=== PATIENT | male | born 1955 | race Two or more races ===

== ENCOUNTER 2024-11-06 10:40 | Emergency (ER) | payer OTHER ==
[~2024-11-06] VITALS: Ht 177.8 cm; Wt 114.3 kg
--- NOTE | 2024-11-06 11:09 | ED.PDOC ---
SOB-HPI HPI Comments This is a 68 year old male presenting to the ED with chief complaint of SOB. Patient reports that he has been experiencing SOB with associated cough and lower chest pain after coughing for the past week, however, his cough has been lingering for about a year now. Patient relays that he initially visited an ENT specialist who performed a sinus procedure about 4-5 months ago, but had no improvement in his cough. Patient states he was on a recent cruise to [place]. Patient was noted to be at 87% on RA in triage, being placed on 4L of O2 and going up to 92%. Patient denies any fever, chills, left sided chest pain, headache, hemoptysis, or N/V. Chief Complaint: Shortness of Breath Time Seen by MD: 11:06 Reviewed notes: Nurses Notes, Medications, Allergies Information Source: Patient Mode of Arrival: Ambulatory Severity: Moderate Timing: Weeks Duration: Since onset Context: At Rest PE Risk Factors: None History of: None Prehospital treatment: None Modifying Factors: Nothing Associated Signs and Symptoms: Cough, Chest Pain Quality: Tightness Radiation: No Radiation Location: Substernal If cough with SOB: Non-Productive Past Medical History PAST MEDICAL HISTORY: DM, High Lipids, HTN Past Medical History (Other): PVCs Surgical History (Other): Sinus surgery, Hemorrhoid surgery Family History Family History: Reviewed,noncontributory to illness, Family hx of heart tray Social History Smoker: Non-Smoker, Quit Greater Than 1 Year Alcohol: Denies ETOH Use Drugs: Denies Drug Use Lives In: Home Constitutional: denies: chills, diaphoresis, fatigue, fever, malaise, sweats, weakness, others EENTM: denies: blurred vision, double vision, ear bleeding, ear discharge, ear drainage, ear pain, ear ringing, eye pain, eye redness, hearing loss, mouth pain, mouth swelling, nasal discharge, nose bleeding, nose congestion, nose pain, photophobia, tearing, throat pain, throat swelling, voice changes, others Respiratory: reports: cough, shortness of breath; denies: hemoptysis, orthopnea, SOB at rest, SOB with excertion, stridor, wheezing, others Cardiovascular: reports: chest pain; denies: dizzy spells, diaphoresis, Dyspnea on exertion, edema, irregular heart beat, left arm pain, lightheadedness, palpitations, PND, syncope, others Gastrointestinal: denies: abdomen distended, abdominal pain, blood streaked bowels, constipated, diarrhea, dysphagia, difficulty swallowing, hematemesis, melena, nausea, poor appetite, poor fluid intake, rectal bleeding, rectal pain, vomiting, others Genitourinary: denies: burning, dysuria, flank pain, frequency, hematuria, incontinence, penile discharge, penile sore, pain, testicle pain, testicle swelling, urgency, others Neurological: denies: dizziness, fainting, headache, left sided numbness, left sided weakness, numbness, paresthesia, pre-existing deficit, right sided numbness, right sided weakness, seizure, speech problems, tingling, tremors, weakness, others Musculoskeletal: denies: back pain, gout, joint pain, joint swelling, muscle pain, muscle stiffness, neck pain, others Integumetry: denies: bruises, change in color, change in hair/nails, dryness, laceration, lesions, lumps, rash, wounds, others Allergic/Immunocompromised: denies: Difficulty Healing, Frequent Infections, Hives, Itching, others Hematologic/Lymphatic: denies: anemia, blood clots, easy bleeding, easy bruising, swollen glands, others Endocrine: denies: excessive hunger, excessive sweating, excessive thirst, excessive urination, flushing, intolerance to cold, intolerance to heat, unexplained weight gain, unexplained weight loss, others Psychiatric: denies: anxiety, bipolar disorder, depression, hopeless, panic disorder, schizophrenia, sleepless, suicidal, others All Other Systems: Reviewed and Negative Physical Exam General Appearance: Moderate Distress HEENT: Normal ENT Inspection, Pharynx Normal, TMs Normal Neck: Full Range of Motion, Non-Tender, Normal, Normal Inspection Respiratory: Chest Non-Tender, Lungs Clear, No Accessory Muscle Use, No Respiratory Distress, Normal Breath Sounds Cardiovascular: No Edema, No JVD, No Murmur, No Gallop, Normal Peripheral Pulses, Regular Rate/Rhythm Breast Exam: Deferred Gastrointestinal: No Organomegaly, Non Tender, No Pulsatile Mass, Normal Bowel Sounds, Soft Genitalia: Deferred Pelvic: Deferred Rectal: Deferred Extremities: No calf tenderness, Normal capillary refill, Normal inspection, Normal range of motion, Non-tender, No pedal edema Musculoskeletal : Apperance: Normal Neurologic: Alert, sample sewer II-XII nml as Tested, Motor Weakness, Normal Affect, Normal Mood, No Sensory Deficits Cerebellar Function: Normal Reflexes: Normal Skin: Dry, Normal Color, Warm Lymphatic: No Adenopathy EKG EKG : Pulse Rate (adult): 86 [place]: Normal Cardiac Rhythm: NSR Block: RBBB Hypertrophy: None ST: Normal Was a procedure done? Was a procedure done?: No Differential Dx Differential Diagnosis: Asthma, Bronchitis, CHF, COPD, Pneumonia X-Ray, Labs, Meds, VS Vital Signs Date Time Temp Pulse Resp B/P (MAP) Pulse Ox O2 Delivery O2 Flow Rate FiO2 11/06/24 16:43 98.7 70 18 139/80 (99) 97 98.7 11/06/24 14:24 97.8 72 16 137/77 (97) 96 97.8 11/06/24 12:17 84 17 95 Nasal Cannula 3.0 11/06/24 12:17 98.2 84 17 113/71 (85) 95 98.2 11/06/24 11:35 98.2 85 18 130/79 (96) 94 98.2 11/06/24 11:12 86 11/06/24 11:09 86 Lab Test 11/06/24 13:14 11/06/24 13:10 11/06/24 12:15 11/06/24 11:15 Range/Units Blood Gas Specimen Type Arterial Blood Gas Sample Site Left radial Blood Gas Patient Temperature 37.0 Arterial Blood Date Drawn [id number] Arterial Blood pH 7.431 7.350-7.450 Arterial Blood Partial Pressure CO2 34.4 L 35.0-48.0 mmHg Arterial Blood Partial Pressure O2 72.8 L 83.0-108.0 mmHg Arterial Blood HCO3 22.4 21.0-28.0 mmol/L Arterial Blood Oxygen Saturation 94.2 94.0-98.0 % Arterial Blood Base Excess -1.2 -2.0-3.0 mmol/L Arterial Blood Oxyhemoglobin 93.0 L 94.0-98.0 % Arterial Blood Carboxyhemoglobin 0.7 0.5-1.5 % Arterial Blood Methemoglobin 0.6 0.0-1.5 % [place] Test Yes Blood Gas Total Hemoglobin 14.90 13.5-17.5 g/dL Blood Gas Liter Flow 4.00 Blood Gas Modality Nasal cannula Blood Gas Spontaneous Rate 20 FiO2 % 36.0 Troponin I High Sensitivity 5 5 </=54 ng/L Urine Color Light-yellow Yellow Urine Clarity Clear Clear Urine pH 5.5 5.0-9.0 Urine Specific [place] 1.020 1.001-1.035 Urine Protein Negative Negative Urine Ketones Negative Negative Urine Blood Negative Negative /uL Urine Nitrite Negative Negative Urine Bilirubin Negative Negative Urine Urobilinogen Normal Negative mg/dL Urine Leukocyte Esterase 2+ Negative /uL Urine RBC 1 0 - 3 /hpf Urine Microscopic WBC 21 H 0-3 /HPF Urine Squamous Epithelial Cells None seen <5 /hpf Urine Bacteria None seen None Seen /hpf Urine Mucus Few None Seen Urine Glucose Normal Normal mg/dL White Blood Count 7.8 4.4-10.8 10^3/uL Red Blood Count 4.96 4.5-5.90 10^6/uL Hemoglobin 14.9 13.5-17.5 g/dL Hematocrit 44.0 41.0-53.0 % Mean Corpuscular Volume 88.8 80.0-100.0 fL Mean Corpuscular Hemoglobin 30.0 28.0-32.0 pg Mean Corpuscular Hemoglobin Concent 33.8 32.0-36.0 g/dL Red Cell Distribution Width 14.1 11.8-14.3 % Platelet Count 236 140-450 10^3/uL Mean Platelet Volume 8.1 6.9-10.8 fL Neutrophils (%) (Auto) 71.3 37.0-80.0 % Lymphocytes (%) (Auto) 16.3 10.0-50.0 % Monocytes (%) (Auto) 5.6 0.0-12.0 % Eosinophils (%) (Auto) 5.6 0.0-7.0 % Basophils (%) (Auto) 1.2 0.0-2.0 % Neutrophils # (Auto) 5.6 1.6-8.6 10 ^3/uL Lymphocytes # (Auto) 1.3 0.4-5.4 10 ^3/uL Monocytes # (Auto) 0.4 0-1.3 10 ^3/uL Eosinophils # (Auto) 0.4 0-0.8 10 ^3/uL Basophils # (Auto) 0.1 0-0.2 10 ^3/uL Nucleated Red Blood Cells 0.1 % D-Dimer, Quantitative 0.30 0.0-0.49 mg/L FEU Sodium Level 140 136-145 mmol/L Potassium Level 4.3 3.5-5.1 mmol/L Chloride Level 108 H 98-107 mmol/L Carbon Dioxide Level 27 20-31 mmol/L Anion Gap 5 5-15 Blood Urea Nitrogen 19 9-23 mg/dL Creatinine 1.30 0.700-1.30 mg/dL Glomerular Filtration Rate Calc 60 >90 mL/min BUN/Creatinine Ratio 14.6 10.0-20.0 Serum Glucose 115 H 74-106 mg/dL Calcium Level 10.7 H 8.7-10.4 mg/dL B-Type Natriuretic Peptide 24.21 0-100 pg/mL The patient's CBC is within normal limits The chemistry panel is within normal limits The glucose is elevated at 115 The BNP is within normal limits The urine test is positive for a UTI An ABG was done which shows NPO to of 72 The patient was evaluated by Dr. Merritt The patient is being discharged They are sending oxygen home with the patient Images Reviewed?: Images reviewed and evaluated by me Time of 1ST Reevaluation: 12:24 Reevaluation 1ST: Unchanged Patient Education/Counseling: Diagnosis, Treatment, Prognosis Family Education/Counseling: No Family Present Additional Information Reviewed patient's previous visit(s): None The following tests were ordered, and results were reviewed by me: Additional information was gathered from interviewing the following independent historian: NONE I reviewed and agreed with the following test results read by other provider: NONE I discussed treatments and results with medical personnel and: Patient Comprehensive systems review obtained and negative except for what is stated in the HPI. Departure 1 Departure Time of Disposition: 19:02 Impression: Primary Impression: Hypoxemia Additional Impression: Generalized weakness Disposition: 01 HOME / SELF CARE / HOMELESS Condition: Fair e-Prescriptions Methylprednisolone (Medrol Dosepak) 4 Mg Tamir 4 MG PO UD, #21 TAB UAD Prov: RUSTY MERRITT MD 11/06/24 Levofloxacin Hemihydrate (LEVAQUIN 500 MG) 500 Mg Tab 1 TAB PO DAILY, #10 TAB Prov: RUSTY MERRITT MD 11/06/24 Discharged With: Self Critical Care Note Critical Care Time?: Yes (45 min-critical care time only) Stability Stability form required: No Heart Score Heart Score: Heart Score Response (Comments) Value History Moderate Suspicious 1 EKG Normal 0 Age >65 2 Risk Factors >3 or Hx ASHD 2 Troponin Normal limit 0 Total 5 I personally scribed for ANJU PARK MD ([email or web address]) on 11/06/24 at 11:09. Electronically submitted by Colin Gaffney ([email or web address]). I personally scribed for ANJU PARK MD ([email or web address]) on 11/06/24 at 11:12. Electronically submitted by Colin Gaffney ([email or web address]). ANJU PARK MD Nov 06, 2024 11:09
[2024-11-06 11:27] LABS: Basophils # (auto) 0.1 10 ^3/uL (0-0.2); Basophils % (auto) 1.2 % (0.0-2.0); Eosinophils # (auto) 0.4 10 ^3/uL (0-0.8); Eosinophils % (auto) 5.6 % (0.0-7.0); Hemoglobin 14.9 g/dL (13.5-17.5); Lymphocytes # (auto) 1.3 10 ^3/uL (0.4-5.4); Lymphocytes % (auto) 16.3 % (10.0-50.0); Mean Corpuscular Hgb Conc. 33.8 g/dL (32.0-36.0); Mean Corpuscular Volume 88.8 fL (80.0-100.0); Monocytes # (auto) 0.4 10 ^3/uL (0-1.3); Monocytes % (auto) 5.6 % (0.0-12.0); Neutrophils # (auto) 5.6 10 ^3/uL (1.6-8.6); Neutrophils % (auto) 71.3 % (37.0-80.0); Nucleated Red Blood Cells % 0.1 %; Platelet Count (auto) 236 10^3/uL (140-450); Red Blood Cells 4.96 10^6/uL (4.5-5.90); Red Cell Distribution Width 14.1 % (11.8-14.3); White Blood Cell 7.8 10^3/uL (4.4-10.8)
[2024-11-06 11:38] LABS: Potassium 4.3 mmol/L (3.5-5.1); Sodium 140 mmol/L (136-145)
[2024-11-06 11:39] LABS: Anion Gap 5 (5-15); Carbon Dioxide 27 mmol/L (20-31)
--- NOTE | 2024-11-06 11:41 | DVH ---
CT CHEST WITHOUT CONTRAST INDICATION: sob EXAM DATE: 11/06/2024 11:10 AM COMPARISON: None RADIATION DOSE: CTDIvol: 21 mGy, DLP: 931 mGy*cm PROCEDURE: Helical CT images were obtained of the chest without intravenous contrast. Sagittal and c oronal reconstructions are provided. ADDITIONAL IMAGES / REFORMATS: None All CT scans at this medical facility are performed using dose modulation techniques as appropriate t o a performed exam including the following: Automated exposure control was utilized; adjustment of th e MA and/or KV according to patient size; and use of iterative reconstruction technique. FINDINGS: Bones: Scattered degenerative changes are noted. Visualized Abdomen: Normal. Chest Wall: Normal. Soft tissues: Normal. Mediastinum: Normal. Heart: Coronary artery calcifications are noted. Vessels: Normal. Lymph Nodes: Normal. Pleura: Normal. Airways: Normal. Lung: Bibasilar atelectasis. Other: None IMPRESSION: No acute intrathoracic abnormality.
[2024-11-06 11:42] LABS: Calcium 10.7 mg/dL (8.7-10.4); Chloride 108 mmol/L (98-107)
[2024-11-06 11:44] LABS: BUN/Creatinine Ratio 14.6 (10.0-20.0); Blood Urea Nitrogen 19 mg/dL (9-23)
[2024-11-06 11:57] LABS: Glucose 115 mg/dL (74-106)
[2024-11-06] MEDS ORDERED: LEVO500T91 PO (12:43)
[2024-11-06] MEDS ORDERED: METH4PAK PO (12:43)
[2024-11-06 13:29] LABS: Base Excess -1.2 mmol/L (-2.0-3.0)
[2024-11-06 13:37] LABS: Urine Bacteria None Seen /hpf (None Seen)
[2024-11-06 13:45] LABS: Urine Blood Negative /uL (Negative); Urine Clarity Clear (Clear); Urine Color Light-Yellow (Yellow); Urine Mucus FEW (None Seen); Urine Protein, UAD Negative (Negative); Urine Squamous Epithelial Cell None Seen /hpf (<5); Urine Urobilinogen Normal (Negative); Urine WBC 21 /HPF (0-3); Urine pH 5.5 (5.0-9.0)
[2024-11-06] MEDS: methylPREDNISolone SOD SUCC 40 MG/ML VL IV ONE (20:52)
[2024-11-06 21:08] VITALS: BP 151/84; PULSE 68; RESP 19; TEMP 98.6; O2SAT 96
--- NOTE | 2024-11-07 12:58 | DVHDS2 ---
New Physician D'charge PN Admitting Diagnosis Admitting Diagnosis hypoxia Discharge Diagnosis copd respiratory failure Operations or Procedures none Reason(s) For Hospitalization Surgery Hospital Course 68 M who comes to ER for SOB. His o2 sats on arrival were 87% on RA. He states he has had a chronic cough and SOB for several weeks now. He was placed on 3L O2 and his sats improved to 95%. His CBC was nml and chemistry panel was also nml. He had two troponins that were negative and PBNP which was nml. HIs D dimer was also nml. He had a CT chest done without contrast which revealed no acute findings. He remained stable on 3L o2 with sats >92%. He mentions to me he has had occupational exposure to chemicals in the past for his work and also used to smoke 2 ppd but has quit for quite some time now, I spoke to him and his kassy and they have an appt with pulmonary this month as an outpt and they will keep that appt. At this time i will dc him home with home o2 via [place] and prescribe a course of PO ABx along with medrol dose genoveva. Patient and family agreeable with plan and they will follow up with pulmonary on 11/20 as per the for his pulm appt. Instructed to return to ER or call 911 should his symptoms worsen and patient to be discharged home once o2 is delivered at bedside. Treatment Plan Discharge Condition of Discharge Good Disposition Home Discharge Instructions Diet: Cardiac 2g Na,low cholest Activity: No Restrictions, As Tolerated Medications: see med sheet Follow Up Care Follow Up/Referral: pcp pulmonary Discharge Statement: "Patient was advised to return to the ER or call 911 if any headaches, dizziness, shortness of breath, chest pain, abdominal pain, bleeding, fevers, or worsening of medical condition. Patient was counseled about treatment plan, medications, possible side effects, patientverbalized understanding. All questions were answered to the best of my ability. This discharge took greater then 30 minutes in planning, reviewing documentation, counseling the patient, and discussing with other team members." RUSTY HARDING MD Nov 07, 2024 12:58
--- NOTE | 2024-11-08 08:40 | ECG ---
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
== END 2024-11-06 21:10 | disposition home or self-care (01) ==
LOC: ER 10:40
DX: R09.02 Hypoxemia (principal); R53.1 Weakness; E11.9 Type 2 diabetes mellitus without complications; I10 Essential (primary) hypertension; E78.5 Hyperlipidemia, unspecified; Z87.19 Personal history of other diseases of the digestive system; Z87.891 Personal history of nicotine dependence; Z87.898 Personal history of other specified conditions; Z98.890 Other specified postprocedural states
CPT/HCPCS: 36415; 71250; 80048; 81001; 83880; 84484; 85025; 85379; 93005; 96374; 99291; J2919